=== PATIENT | male | born 1960 | race Caucasian/White ===

== ENCOUNTER 2018-06-12 14:16 | Inpatient (IN) ==
[2018-06-12 14:33] VITALS: BMI 37.5
--- NOTE | 2018-06-12 15:26 | DR.EXTPAIN ---
HPI Time seen Time Seen by Provider: 06/12/18 15:16 PCP Primary Care Physician: DEANNA LANIER Complaint/Symptoms Chief Complaint:: ABOUT 3 WEEKS AGO PT HOUGHT HE HAD RING WORM ON RIGHT ARM, 2 SPOTS ON BACK AND UPPER RIGHT THIGH. AREA ON RIGHT ARM HAS BECOME MORE SWOLLEN, DRAINING. PT WAS SEEN IN ER IN [place] 8 DAYS AGO AND WAS STARTED ON CLINDAMYCIN 300MG PO QID WHICH HE HAS BEEN TAKING. SINCE THEN THE SWELLING IN THE RIGHT ARM HAS INCREASED. AREA IS VERY RED AND HOT TO TOUCH. PT HAS ALSO NOTICED RED SPOTS COMING UP ON LEFT ARM SINCE YESTERDAY Source History Provided: Patient Mode of arrival Mode of Arrival: Ambulatory Timing Onset of Chief Complaint: 06/12/18 PMH PMH Past Medical History: Yes Past Medical History: Hypothyroidism Past Surgical History: Yes Surgical History: Ortho Surgery Past Surgical History Comment: LEFT KNEE SURGERY Family History History of Family Medical Conditions: Yes Family Medical History: Diabetes Mellitus, Cancer and Coronary Artery Disease Social History Does patient currently use any type of tobacco product: No Have you used tobacco products in the last 12 months: No Type of Tobacco Use: None Does any household member use tobacco: No Alcohol Use: None Do you use any recreational Drugs:: No Lives With: Family Lives Where: Home infectious screening In the last 2 months have you had wt loss of >10#?: NO Have you had fever, night sweats or hemotysis?: No Have you traveled outside the country in the last 6 months?: No Isolation: Standard PE Vital Signs Vitals: Temperature 97.7 F Pulse Rate [Right Brachial] 64 Pulse Rate 89 Respiratory Rate 20 Blood Pressure [Right Arm] 136/88 Blood Pressure 132/71 O2 Sat by Pulse Oximetry 98 ROR Labs Reviewed Result Diagrams: 06/12/18 16:00 06/12/18 16:00 Laboratory: WBC 12.5 X10^3/uL (3.6-10.0) H 06/12/18 16:00 RBC 5.35 X10^6/uL (4.7-6.0) 06/12/18 16:00 Hgb 16.6 g/dL (13.5-18.0) 06/12/18 16:00 Hct 46.9 % (42.0-54.0) 06/12/18 16:00 MCV 87.7 fL (80.0-100.0) 06/12/18 16:00 MCH 31.0 pg (27.0-34.0) 06/12/18 16:00 MCHC 35.4 g/dL (33.0-35.0) H 06/12/18 16:00 RDW 13.1 % (11.6-16.5) 06/12/18 16:00 Plt Count 314 X10^3/uL (150.0-450.0) 06/12/18 16:00 MPV 8.3 fL (7.4-11.0) 06/12/18 16:00 Neut % (Auto) 59.9 % (42.0-75.0) 06/12/18 16:00 Lymph % (Auto) 26.2 % (21.0-51.0) 06/12/18 16:00 [place] % (Auto) 6.0 % (0.0-13.0) 06/12/18 16:00 Eos % (Auto) 6.9 % (0.9-2.9) H 06/12/18 16:00 Baso % (Auto) 1.0 % (0.2-1.0) 06/12/18 16:00 Neut # (Auto) 7.5 x10^3/uL (2.2-4.8) H 06/12/18 16:00 Lymph # (Auto) 3.3 X10^3/uL (1.3-2.9) H 06/12/18 16:00 [place] # (Auto) 0.8 x10^3/uL (0.3-0.8) 06/12/18 16:00 Eos # (Auto) 0.9 x10^3/uL (0.0-0.2) H 06/12/18 16:00 Baso # (Auto) 0.1 X10^3/uL (0.0-0.1) 06/12/18 16:00 Absolute Nucleated RBC 0.1 /100WBC 06/12/18 16:00 ESR 2 MM/HOUR (0-15) 06/12/18 16:00 Sodium 139 mmol/L (136-145) 06/12/18 16:00 Corrected Sodium TNP 06/12/18 16:00 Potassium 3.3 mmol/L (3.5-5.1) L 06/12/18 16:00 Chloride 102 mmol/L (98-107) 06/12/18 16:00 Carbon Dioxide 30.9 mmol/L (21-32) 06/12/18 16:00 BUN 11 mg/dL (7-18) 06/12/18 16:00 Creatinine 1.13 mg/dL (0.70-1.30) 06/12/18 16:00 Est GFR (MDRD) Af Amer > 60 (>60) 06/12/18 16:00 Est GFR (MDRD) Non-Af > 60 (>60) 06/12/18 16:00 Glucose 67 mg/dL (65-99) 06/12/18 16:00 Lactic Acid 1.3 mmol/L (0.4-2.0) 06/12/18 16:00 Calcium 8.6 mg/dL (8.5-10.1) 06/12/18 16:00 Corrected Calcium TNP 06/12/18 16:00 Total Bilirubin 0.30 mg/dL (0.2-1.0) 06/12/18 16:00 AST 38 Units/L (15-37) H 06/12/18 16:00 ALT 66 Units/L (12-78) 06/12/18 16:00 Alkaline Phosphatase 90 Units/L (46-116) 06/12/18 16:00 C-Reactive Protein 9.50 mg/L (0-3.0) H 06/12/18 16:00 Total Protein 7.1 g/dL (6.4-8.2) 06/12/18 16:00 Albumin 3.4 g/dL (3.4-5.0) 06/12/18 16:00 Globulin 3.7 g/dL (2.5-4.5) 06/12/18 16:00 Albumin/Globulin Ratio 0.9 Ratio (1.1-2.1) L 06/12/18 16:00 Specimen Type Clean catch urine 06/12/18 16:42 Urine Color Yellow (YELLOW) 06/12/18 16:42 Urine Appearance Clear (CLEAR) 06/12/18 16:42 Urine pH 7.0 (5.0 - 8.0) 06/12/18 16:42 Ur Specific [place] 1.015 (1.000-1.030) 01/26/19 16:42 Urine Protein Negative (NEGATIVE) 06/12/18 16:42 Urine Glucose (UA) Negative (NEGATIVE) 06/12/18 16:42 Urine Ketones Negative (NEGATIVE) 06/12/18 16:42 Urine Occult Blood Negative (NEGATIVE) 06/12/18 16:42 Urine Nitrite Negative (NEGATIVE) 06/12/18 16:42 Urine Bilirubin Negative (NEGATIVE) 06/12/18 16:42 Urine Urobilinogen Normal (NORMAL) 06/12/18 16:42 Ur Leukocyte Esterase Negative (NEGATIVE) 06/12/18 16:42
[2018-06-12 16:23] LABS: BASOPHILS # (AUTO) 0.1 X10^3/uL (0.0-0.1); EOSINOPHILS # (AUTO) 0.9 x10^3/uL (0.0-0.2); EOSINOPHILS % (AUTO) 6.9 % (0.9-2.9); HEMATOCRIT 46.9 % (42.0-54.0); HEMOGLOBIN 16.6 g/dL (13.5-18.0); LYMPHOCYTES # (AUTO) 3.3 X10^3/uL (1.3-2.9); LYMPHOCYTES % (AUTO) 26.2 % (21.0-51.0); MEAN CORPUSCULAR HGB CONC 35.4 g/dL (33.0-35.0); MEAN CORPUSCULAR VOLUME 87.7 fL (80.0-100.0); MEAN PLATELET VOLUME 8.3 fL (7.4-11.0); MONOCYTES # (AUTO) 0.8 x10^3/uL (0.3-0.8); NEUTROPHILS # (AUTO) 7.5 x10^3/uL (2.2-4.8); NEUTROPHILS % (AUTO) 59.9 % (42.0-75.0); PLATELET COUNT 314 X10^3/uL (150.0-450.0); RED BLOOD COUNT 5.35 X10^6/uL (4.7-6.0); RED CELL DISTRIBUTION WIDTH 13.1 % (11.6-16.5); WHITE BLOOD COUNT 12.5 X10^3/uL (3.6-10.0)
[2018-06-12 16:30] LABS: ALANINE AMINOTRANSFERASE 66 Units/L (12-78); ALBUMIN 3.4 g/dL (3.4-5.0); ALKALINE PHOSPHATASE 90 Units/L (46-116); BLOOD UREA NITROGEN 11 mg/dL (7-18); CALCIUM 8.6 mg/dL (8.5-10.1); CARBON DIOXIDE 30.9 mmol/L (21-32); CHLORIDE 102 mmol/L (98-107); CREATININE 1.13 mg/dL (0.70-1.30); SODIUM 139 mmol/L (136-145); TOTAL PROTEIN 7.1 g/dL (6.4-8.2); eGFR NON BLACK RACES > 60 (>60)
[2018-06-12] MEDS ORDERED: BENADRYL INJ 50 MG VIAL ONE (16:42)
[2018-06-12] MEDS ORDERED: TORADOL 60 MG VIAL ONE (16:42)
[2018-06-12] MEDS ORDERED: TORADOL 60 MG VIAL IM ONE (16:47)
[2018-06-12] MEDS ORDERED: BENADRYL INJ 50 MG VIAL IM ONE (16:47)
[2018-06-12 16:54] LABS: ERYTHROCYTE SEDIMENTATION RATE 2 MM/HOUR (0-15)
[2018-06-12 16:57] LABS: ASPARTATE AMINO TRANSFERASE 38 Units/L (15-37)
[2018-06-12 17:02] LABS: LACTIC ACID 1.3 mmol/L (0.4-2.0)
[2018-06-12 17:05] LABS: APPEARANCE,URINE CLEAR (CLEAR); BILIRUBIN,URINE NEGATIVE (NEGATIVE); BLOOD/HEMOGLOBIN,URINE NEGATIVE (NEGATIVE); COLOR,URINE YELLOW (YELLOW); GLUCOSE, URINE NEGATIVE (NEGATIVE); KETONES,URINE NEGATIVE (NEGATIVE); LEUKOCYTE ESTERASE ,URINE NEGATIVE (NEGATIVE); NITRITES,URINE NEGATIVE (NEGATIVE); PROTEIN,URINE NEGATIVE (NEGATIVE); UROBILINOGEN,URINE NORMAL (NORMAL)
[2018-06-12] MEDS ORDERED: K-LYTE EFFERVESCENT PO ONE (17:21)
[2018-06-12] MEDS ORDERED: K-LYTE EFFERVESCENT ONE (17:42)
[2018-06-12] MEDS ORDERED: NS 250 ML IV 250 ML IV ONE (18:25)
[2018-06-12] MEDS ORDERED: VANCOMYCIN HCL 1 GM VIAL ONE (18:25)
[2018-06-12] MEDS: VANCOMYCIN HCL 500 MG VIAL 250 MG, VANCOMYCIN HCL 1 GM VIAL 1 G in D5W 250 ML IV 250 ML IV SCH (18:45)
[2018-06-12] MEDS ORDERED: ANCEF VIAL 1 GRAM IM ONE (19:15)
[2018-06-12] MEDS ORDERED: MORPHINE SULFATE INJ 4 MG IM ONE (19:16)
[2018-06-12] MEDS ORDERED: ZOFRAN INJ 4 MG VIAL IM ONE (19:16)
[2018-06-12] MEDS ORDERED: PHENERGAN TAB 25 MG PO PRN (19:21)
[2018-06-12] MEDS ORDERED: MORPHINE SULFATE INJ 2 MG INJ IVP PRN (19:21)
[2018-06-12] MEDS: TORADOL 30 MG VIAL IVP PRN (19:51)
[2018-06-12] MEDS: NS 1000 ML 1,000 ML IV SCH (19:52)
[2018-06-13] MEDS ORDERED: BENADRYL INJ 50 MG VIAL IVP ONE (00:21)
[2018-06-13] MEDS ORDERED: BENADRYL INJ 50 MG VIAL ONE (00:26)
[2018-06-13] MEDS: NS 1000 ML 1,000 ML IV SCH ×4 (03:54→20:54)
[2018-06-13 06:28] LABS: BASOPHILS # (AUTO) 0.1 X10^3/uL (0.0-0.1); EOSINOPHILS # (AUTO) 0.9 x10^3/uL (0.0-0.2); HEMATOCRIT 43.6 % (42.0-54.0); HEMOGLOBIN 15.4 g/dL (13.5-18.0); LYMPHOCYTES # (AUTO) 3.5 X10^3/uL (1.3-2.9); LYMPHOCYTES % (AUTO) 36.6 % (21.0-51.0); MEAN CORPUSCULAR HEMOGLOBIN 30.8 pg (27.0-34.0); MEAN CORPUSCULAR HGB CONC 35.4 g/dL (33.0-35.0); MEAN CORPUSCULAR VOLUME 87.1 fL (80.0-100.0); MEAN PLATELET VOLUME 8.2 fL (7.4-11.0); MONOCYTES # (AUTO) 0.8 x10^3/uL (0.3-0.8); MONOCYTES % (AUTO) 7.9 % (0.0-13.0); NEUTROPHILS # (AUTO) 4.2 x10^3/uL (2.2-4.8); NEUTROPHILS % (AUTO) 44.5 % (42.0-75.0); PLATELET COUNT 276 X10^3/uL (150.0-450.0); RED CELL DISTRIBUTION WIDTH 13.3 % (11.6-16.5); WHITE BLOOD COUNT 9.5 X10^3/uL (3.6-10.0)
[2018-06-13 06:39] LABS: ALANINE AMINOTRANSFERASE 54 Units/L (12-78); ALBUMIN 2.8 g/dL (3.4-5.0); ALKALINE PHOSPHATASE 70 Units/L (46-116); ASPARTATE AMINO TRANSFERASE 28 Units/L (15-37); BLOOD UREA NITROGEN 9 mg/dL (7-18); CARBON DIOXIDE 27.3 mmol/L (21-32); CHLORIDE 106 mmol/L (98-107); CREATININE 1.06 mg/dL (0.70-1.30); SODIUM 140 mmol/L (136-145); TOTAL PROTEIN 5.8 g/dL (6.4-8.2); eGFR NON BLACK RACES > 60 (>60)
[2018-06-13] MEDS ORDERED: POTASSIUM CHLORIDE LIQ 20 MEQ UDC PO PRN (08:08)
[2018-06-13] MEDS ORDERED: K-DUR TAB 20 MEQ PO PRN (08:08)
[2018-06-13] MEDS ORDERED: POTASSIUM CHL 60 MEQ/NS 0.45% 500 ML IV PRN (08:08)
[2018-06-13] MEDS ORDERED: POTASSIUM CHL 40 MEQ/NS 0.45% 500 ML IV PRN (08:08)
[2018-06-13] MEDS ORDERED: K-RIDER 10 MEQ/NS 100 ML 10 MEQ/100 ML BAG IV PRN (08:08)
[2018-06-13] MEDS ORDERED: MICRO K EXTEN CAP 10 MEQ PO PRN (08:08)
[2018-06-13] MEDS ORDERED: KLOR-CON PO PRN (08:08)
[2018-06-13] MEDS ORDERED: VANCOMYCIN HCL 1 GM VIAL 1 G in D5W 250 ML IV 250 ML IV SCH (09:00)
[2018-06-13] MEDS: TORADOL 30 MG VIAL IVP PRN ×2 (09:48→20:51)
[2018-06-13] MEDS: VANCOMYCIN HCL 500 MG VIAL 250 MG, VANCOMYCIN HCL 1 GM VIAL 1 G in D5W 250 ML IV 250 ML IV SCH ×2 (10:21→20:47)
[2018-06-13] MEDS: MAGNESIUM SULFATE 1 GRAM/100 mL PREMIX 1 GM/100 ML BAG IV PRN ×2 (10:23→12:21)
--- NOTE | 2018-06-13 10:39 | DR.H&P ---
H&P - History & Physical for Day of: H&P Date: 06/12/18 - Chief Complaint Chief Complaint: RIGHT UPPER ARM RASH, REDNESS PAIN - History of Present Illness History of Present Illness: 58 WM ER ADMISSION WITH CO ABOUT 3 WEEKS AGO PT THOUGHT HE HAD RING WORM ON RIGHT ARM, 2 SPOTS ON BACK AND UPPER RIGHT THIGH. AREA ON RIGHT ARM HAS BECOME MORE SWOLLEN, DRAINING. PT WAS SEEN IN ER IN [place] 8 DAYS AGO AND WAS STARTED ON CLINDAMYCIN 300MG PO QID WHICH HE HAS BEEN TAKING. SINCE THEN THE SWELLING IN THE RIGHT ARM HAS INCREASED. AREA IS VERY RED AND HOT TO TOUCH. PT HAS ALSO NOTICED RED SPOTS COMING UP ON LEFT ARM SINCE YESTERDAY. WBC 12.5 IN ER, K+ 3.3. PT HAS CULTURE COLLECTED IN ER, ADMITTED WITH IV VANCOMYCIN AND TREATMENT OF CELLULITIS. - Past Medical History Past Medical History: Hypothyroidism. denies: Asthma, COPD, Coronary Artery Disease, Diabetes, Hypertension - Past Surgical History Surgical History: Ortho Surgery - Family History Family Medical History: Diabetes Mellitus, Cancer, Coronary Artery Disease - Social History Does patient currently use any type of tobacco product: No Have you used tobacco products in the last 12 months: No Type of Tobacco Use: None Does any household member use tobacco: No Alcohol Use: None Drug Use: None - Medications Home Medications: No Known Drug Allergies Allergy (Verified 06/12/18 14:33) CONTINUE taking the following medications thyroid (pork) [[place] Thyroid] 300 mg PO QDAY 06/12/18 [History] - Review of Systems Constitutional: Fever, Weakness Eyes: No Symptoms Reported ENT: No Symptoms Reported Respiratory: No Symptoms Reported Cardiovascular: No Symptoms Reported Gastrointestinal: No Symptoms Reported Genitourinary: No Symptoms Reported Musculoskeletal: Arm Pain Skin: Rash, Wound Neurological: No Symptoms Reported - Physical Exam Vital Signs: Temperature 97.6 F Pulse Rate [Right Brachial] 60 Pulse Rate 89 Respiratory Rate 18 Blood Pressure [Right Arm] 117/67 Blood Pressure 132/71 O2 Sat by Pulse Oximetry 96 Oriented: Normal Eyes: Normal Ear: Normal Nose: Normal Throat: Normal Respiratory: Clear Throughout Cardiovascular: Normal : Normal Auscultation: Bowel Sounds: Normal Palpation: Normal Tenderness: Normal Skin: Rash (RIGHT UPPER ARM, RIGHT THIGH, LEFT UPPER BACK, LEFT MID BACK), Red, Tender, Hot Musculoskeletal: Right, Elbow, Swelling, Tender Psychiatric: Normal Mood Description: Calm Speech Pattern: Clear - Assessment/Plan (1) Cellulitis Status: Acute Plan: WOUND CULTURE ON ADMISSION. IV VANCOMYCIN. AM LABS, GENTLE IV HYDRATION. VERIFY AND RESUME HOME MEDICATION. PAIN CONTROL (2) Skin eruption Status: Acute (3) Hypothyroid Status: Acute - Allergies Allergies/Adverse Reactions: Allergies Allergy/AdvReac Type Severity Reaction Status Date / Time No Known Drug Allergies Allergy Verified 06/12/18 14:33
[2018-06-13] MEDS ORDERED: THYROID 300 MG PO SCH (10:45)
--- NOTE | 2018-06-13 10:47 | PCM.PROG ---
Progress Note - Progress Note for Day of Date of Exam: 06/13/18 - Subjective Subjective: 58 WM ER ADMISSION ON 06/12 WITH CELLULITIS TO R UPPER ARM AND SKIN ERUPTION TO RUE, RLE AND LEFT TRUNK WITH CO SEVERE PRURITIS. PT IS CURRENTLY ON IV VANCOMYCIN AND PRN BENADRYL. WOUND CULTURE COLLECTED ON ADMISSION PENDING. WILL ADD RUE XRAY AND WOUND CARE INSTRUCTIONS. PAIN CONTROL, REPEAT AM LABS - Past Medical Family Social History Past Med/Fam/Surg Hx: No changes since H&P Allergies: Allergies No Known Drug Allergies Allergy (Verified 06/12/18 14:33) - Review of Systems ROS: No change since H&P - Vital Signs and I&O's Vital Signs: Temperature 97.6 F Pulse Rate [Right Brachial] 60 Pulse Rate 89 Respiratory Rate 18 Blood Pressure [Right Arm] 117/67 Blood Pressure 132/71 O2 Sat by Pulse Oximetry 96 Intake and Output: Intake & Output 06/10/18 06/11/18 06/12/18 06/13/18 11:59 11:59 11:59 11:59 Intake Total 2450 / 2450 Output Total 625 / 625 Balance 1825 / 1825 - Physical Exam Oriented: Normal Eyes: Normal Ear: Normal Nose: Normal Throat: Normal Respiratory: Normal Cardiovascular: Normal : Normal Auscultation: Bowel Sounds: Normal Tenderness: Normal Skin: Rash (RIGHT UPPER ARM, RIGHT THIGH, LEFT UPPER BACK, LEFT MID BACK), Red, Tender, Hot Musculoskeletal: Right, Elbow, Swelling, Tender Psychiatric: Normal Mood Description: Calm Speech Pattern: Clear - Laboratory and Diagnostics Result Diagrams: 06/13/18 05:37 06/13/18 05:37 Labs: Laboratory WBC 9.5 X10^3/uL (3.6-10.0) 06/13/18 05:37 RBC 5.00 X10^6/uL (4.7-6.0) 06/13/18 05:37 Hgb 15.4 g/dL (13.5-18.0) 06/13/18 05:37 Hct 43.6 % (42.0-54.0) 06/13/18 05:37 MCV 87.1 fL (80.0-100.0) 06/13/18 05:37 MCH 30.8 pg (27.0-34.0) 06/13/18 05:37 MCHC 35.4 g/dL (33.0-35.0) H 06/13/18 05:37 RDW 13.3 % (11.6-16.5) 06/13/18 05:37 Plt Count 276 X10^3/uL (150.0-450.0) 06/13/18 05:37 MPV 8.2 fL (7.4-11.0) 06/13/18 05:37 Neut % (Auto) 44.5 % (42.0-75.0) 06/13/18 05:37 Lymph % (Auto) 36.6 % (21.0-51.0) 06/13/18 05:37 [place] % (Auto) 7.9 % (0.0-13.0) 06/13/18 05:37 Eos % (Auto) 10.0 % (0.9-2.9) H 06/13/18 05:37 Baso % (Auto) 1.0 % (0.2-1.0) 06/13/18 05:37 Neut # (Auto) 4.2 x10^3/uL (2.2-4.8) 06/13/18 05:37 Lymph # (Auto) 3.5 X10^3/uL (1.3-2.9) H 06/13/18 05:37 [place] # (Auto) 0.8 x10^3/uL (0.3-0.8) 06/13/18 05:37 Eos # (Auto) 0.9 x10^3/uL (0.0-0.2) H 06/13/18 05:37 Baso # (Auto) 0.1 X10^3/uL (0.0-0.1) 06/13/18 05:37 Absolute Nucleated RBC 0.0 /100WBC 06/13/18 05:37 ESR 2 MM/HOUR (0-15) 06/12/18 16:00 Sodium 140 mmol/L (136-145) 06/13/18 05:37 Corrected Sodium TNP 06/13/18 05:37 Potassium 3.7 mmol/L (3.5-5.1) 06/13/18 05:37 Chloride 106 mmol/L (98-107) 06/13/18 05:37 Carbon Dioxide 27.3 mmol/L (21-32) 06/13/18 05:37 BUN 9 mg/dL (7-18) 06/13/18 05:37 Creatinine 1.06 mg/dL (0.70-1.30) 06/13/18 05:37 Est GFR (MDRD) Af Amer > 60 (>60) 06/13/18 05:37 Est GFR (MDRD) Non-Af > 60 (>60) 06/13/18 05:37 Glucose 105 mg/dL (65-99) H 06/13/18 05:37 Lactic Acid 1.3 mmol/L (0.4-2.0) 06/12/18 16:00 Calcium 8.0 mg/dL (8.5-10.1) L 06/13/18 05:37 Corrected Calcium 9.0 mg/dL (8.5-10.1) 06/13/18 05:37 Magnesium 1.8 mg/dL (1.7-2.9) 06/13/18 05:37 Total Bilirubin 0.30 mg/dL (0.2-1.0) 06/13/18 05:37 AST 28 Units/L (15-37) 06/13/18 05:37 ALT 54 Units/L (12-78) 06/13/18 05:37 Alkaline Phosphatase 70 Units/L (46-116) 06/13/18 05:37 C-Reactive Protein 9.50 mg/L (0-3.0) H 06/12/18 16:00 Total Protein 5.8 g/dL (6.4-8.2) L 06/13/18 05:37 Albumin 2.8 g/dL (3.4-5.0) L 06/13/18 05:37 Globulin 3.0 g/dL (2.5-4.5) 06/13/18 05:37 Albumin/Globulin Ratio 0.9 Ratio (1.1-2.1) L 06/13/18 05:37 Specimen Type Clean catch urine 06/12/18 16:42 Urine Color Yellow (YELLOW) 06/12/18 16:42 Urine Appearance Clear (CLEAR) 06/12/18 16:42 Urine pH 7.0 (5.0 - 8.0) 06/12/18 16:42 Ur Specific [place] 1.015 (1.000-1.030) 06/12/18 16:42 Urine Protein Negative (NEGATIVE) 06/12/18 16:42 Urine Glucose (UA) Negative (NEGATIVE) 06/12/18 16:42 Urine Ketones Negative (NEGATIVE) 06/12/18 16:42 Urine Occult Blood Negative (NEGATIVE) 06/12/18 16:42 Urine Nitrite Negative (NEGATIVE) 06/12/18 16:42 Urine Bilirubin Negative (NEGATIVE) 06/12/18 16:42 Urine Urobilinogen Normal (NORMAL) 06/12/18 16:42 Ur Leukocyte Esterase Negative (NEGATIVE) 06/12/18 16:42 - Plan (1) Cellulitis Status: Acute Plan: WOUND CULTURE ON ADMISSION. IV VANCOMYCIN. AM LABS, GENTLE IV HYDRATION. WOUND CARE. PAIN CONTROL (2) Skin eruption Status: Acute (3) Hypothyroid Status: Acute Plan: RESUME HOME MEDICATION, THS FREET4 AND T3
[2018-06-13] MEDS ORDERED: DIFLUCAN PO SCH (11:00)
[2018-06-13 11:11] LABS: FREE T4 (FREE THYROXINE) 0.29 ng/dL (0.76-1.46); TSH (3RD GENERATION) 19.871 uIU/mL (0.358-3.74)
[2018-06-13] MEDS ORDERED: LOVENOX INJ 40 MG SYR SC SCH (12:00)
[2018-06-13] MEDS: BACTROBAN TOPICAL OINT TOP SCH ×3 (12:52→21:37)
[2018-06-13] MEDS ORDERED: BENADRYL CAP 50 MG PO PRN (16:38)
[2018-06-13] MEDS ORDERED: BENADRYL CAP/TAB 25 MG PO ONE (16:55)
[2018-06-14] MEDS: BACTROBAN TOPICAL OINT TOP SCH (05:05)
[2018-06-14] MEDS: NS 1000 ML 1,000 ML IV SCH (05:05)
[2018-06-14 06:54] LABS: ALANINE AMINOTRANSFERASE 52 Units/L (12-78); ALBUMIN 2.7 g/dL (3.4-5.0); ALKALINE PHOSPHATASE 74 Units/L (46-116); ASPARTATE AMINO TRANSFERASE 30 Units/L (15-37); BLOOD UREA NITROGEN 10 mg/dL (7-18); CALCIUM 7.6 mg/dL (8.5-10.1); CARBON DIOXIDE 20.7 mmol/L (21-32); CHLORIDE 108 mmol/L (98-107); COR CA(FOR HYPOALB) 8.6 mg/dL (8.5-10.1); CREATININE 1.21 mg/dL (0.70-1.30); MAGNESIUM 1.8 mg/dL (1.7-2.9); SODIUM 142 mmol/L (136-145); TOTAL PROTEIN 5.8 g/dL (6.4-8.2); eGFR NON BLACK RACES > 60 (>60)
[2018-06-14 06:56] LABS: BASOPHILS # (AUTO) 0.1 X10^3/uL (0.0-0.1); BASOPHILS % (AUTO) 1.2 % (0.2-1.0); EOSINOPHILS # (AUTO) 1.1 x10^3/uL (0.0-0.2); EOSINOPHILS % (AUTO) 10.2 % (0.9-2.9); HEMATOCRIT 44.2 % (42.0-54.0); HEMOGLOBIN 15.2 g/dL (13.5-18.0); LYMPHOCYTES # (AUTO) 4.2 X10^3/uL (1.3-2.9); LYMPHOCYTES % (AUTO) 38.3 % (21.0-51.0); MEAN CORPUSCULAR HEMOGLOBIN 30.6 pg (27.0-34.0); MEAN CORPUSCULAR HGB CONC 34.3 g/dL (33.0-35.0); MEAN CORPUSCULAR VOLUME 89.1 fL (80.0-100.0); MEAN PLATELET VOLUME 9.1 fL (7.4-11.0); MONOCYTES # (AUTO) 0.8 x10^3/uL (0.3-0.8); MONOCYTES % (AUTO) 6.9 % (0.0-13.0); NEUTROPHILS # (AUTO) 4.8 x10^3/uL (2.2-4.8); NEUTROPHILS % (AUTO) 43.4 % (42.0-75.0); PLATELET COUNT 245 X10^3/uL (150.0-450.0); RED BLOOD COUNT 4.96 X10^6/uL (4.7-6.0); RED CELL DISTRIBUTION WIDTH 13.3 % (11.6-16.5)
[2018-06-14 08:11] VITALS: BP 140/86
[2018-06-14] MEDS ORDERED: PHARMACY COMMENT IV NR (08:30)
[2018-06-14] MEDS ORDERED: THYROID 30 MG PO SCH (09:00)
== END 2018-06-14 11:05 | disposition home or self-care (01) | DRG 603 ==
LOC: ER 14:23 → MED/SURG 18:40
PROVIDERS: ADMIT Internal Medicine; ATTEND Internal Medicine
DX: E11.8 Type 2 diabetes mellitus with unspecified complications; I25.10 Atherosclerotic heart disease of native coronary artery without angina pectoris; L03.113 Cellulitis of right upper limb; I10 Essential (primary) hypertension; J44.9 Chronic obstructive pulmonary disease, unspecified; L29.9 Pruritus, unspecified; E03.9 Hypothyroidism, unspecified
CPT/HCPCS: 36415; 73070; 80053; 81003; 83605; 83735; 84132; 84439; 84443; 84481; 85025; 85652; 86140; 87040; 96365; 96372; 96374; 99221; 99231; 99284; A4222; J1200; J1650; J1885; J2270; J3370; J3475; J3490; J7030; J7050; J7060; J8499